=== PATIENT | female | born 1990 | race Caucasian/White ===

== ENCOUNTER 2017-01-06 22:10 | Emergency (ER) | payer MEDICAID ==
[2017-01-06 22:22] VITALS: TEMP 98.8
--- NOTE | 2017-01-06 22:28 | EDPHY ---
H & P Stated Complaint: c/o n/v/abd cramping starting overnight Time Seen by Provider: 01/06/17 22:18 HPI/ROS: HPI The patient presents with nausea, vomiting, crampy abdominal pain which have been present since 2:30 a.m. this morning. These started after having about 15 alcoholic drinks from 7:00 p.m. until 2:00 a.m. the day before. The vomiting has been constant, somewhat greenish in color now, without any blood. She has been unable to take anything by mouth because of the symptoms. The pain is moderate in severity, has been constant, is worse with changes in position. She has no prior history of similar. She denies any urinary symptoms. She has not had any vaginal bleeding or discharge.. REVIEW OF SYSTEMS Constitutional: No fever, no chills. Eyes: No discharge. ENT: No sore throat. Cardiovascular: No chest pain, no palpitations. Respiratory: No cough, no shortness of breath. Gastrointestinal: See HPI Genitourinary: No hematuria. Musculoskeletal: No back pain. Skin: No rashes. Neurological: No headache. PMHx: Healthy Soc Hx: Binge drinker PHYSICAL General Appearance: Alert, no distress Eyes: Pupils equal and round no pallor or injection ENT, Mouth: Mucous membranes moist Respiratory: There are no retractions, lungs are clear to auscultation Cardiovascular: Regular rate and rhythm Gastrointestinal: Abdomen is soft and non-tender, no masses, bowel sounds normal Neurological: A&O, moves all extremities Skin: Warm and dry, no rashes Musculoskeletal: Neck is supple non tender Extremities: symmetrical, full range of motion Psychiatric: Patient is oriented X 3, there is no agitation Source: Patient - Medical/Surgical History Hx Asthma: No Hx Chronic Respiratory Disease: No Hx Diabetes: No Hx Cardiac Disease: No Hx Renal Disease: No Hx Cirrhosis: No Hx Alcoholism: No Hx HIV/AIDS: No Hx Splenectomy or Spleen Trauma: No Other PMH: Hx Meth use (clean since 12/26), ETOH, cocaine - no longer using, Marijuana use now, depression. - Social History Smoking Status: Never smoked Constitutional: Initial Vital Signs Temperature (C) 37.1 C 01/06/17 22:13 Heart Rate 108 H 01/06/17 22:13 Respiratory Rate 18 01/06/17 22:13 Blood Pressure 126/96 H 01/06/17 22:13 O2 Sat (%) 97 01/06/17 22:13 O2 Delivery Mode Room Air Allergies/Adverse Reactions: No Known Allergies Allergy (Verified 01/06/17 22:17) Home Medications: Medication Instructions Recorded Nitrofurantoin Monohyd/M-Cryst 100 mg PO BID #10 capsule 01/07/17 [Macrobid 100 mg Capsule] Medical Decision Making ED Course/Re-evaluation: In the emergency room, the patient received IV fluids for volume depletion as well as Zofran for nausea. Basic labs were checked and were unremarkable. Urinalysis did show signs of infection. She did not have any irritative voiding symptoms and does not have any suprapubic tenderness or flank tenderness on exam, however in the setting of vomiting with this diffuse abdominal pain, I will plan to treat her for an uncomplicated urinary tract infection with Macrobid. She was reassessed and felt well after receiving treatments. She would like to be discharged home. I will give her information for [facility] for primary care she does not see her doctor regularly. I have encouraged her to decrease her alcohol use. Differential Diagnosis: This is a 27-year-old female with history of alcohol abuse who presents with nausea, vomiting, crampy abdominal pain after alcohol binge. On exam, she is tachycardic and mildly dehydrated. Her abdominal exam is benign. Differential diagnosis includes pancreatitis, alcoholic ketoacidosis, alcoholic gastritis, gastroenteritis, toxin mediated enterocolitis. - Data Points Laboratory Results: Laboratory Results 01/06/17 22:30 01/06/17 22:30 01/06/17 01/06/17 01/06/17 23:40 22:30 22:30 WBC RBC Hgb Hct MCV MCH MCHC RDW Plt Count MPV Neut % (Auto) Lymph % (Auto) [place] % (Auto) Eos % (Auto) Baso % (Auto) Nucleat RBC Rel Count Absolute Neuts (auto) Absolute Lymphs (auto) Absolute Monos (auto) Absolute Eos (auto) Absolute Basos (auto) Absolute Nucleated RBC Immature Gran % Immature Gran # Sodium 139 mEq/L mEq/L (134-144) Potassium 3.7 mEq/L mEq/L (3.5-5.2) Chloride 102 mEq/L mEq/L (97-110) Carbon Dioxide 23 mEq/l mEq/l (22-31) Anion Gap 14 mEq/L mEq/L (8-16) BUN 15 mg/dL mg/dL (7-23) Creatinine 0.8 mg/dL mg/dL (0.6-1.0) Estimated GFR > 60 Glucose 105 mg/dL H mg/dL (70-100) Calcium 10.0 mg/dL mg/dL (8.5-10.4) Total Bilirubin 1.4 mg/dL mg/dL (0.1-1.4) Conjugated Bilirubin 0.4 mg/dL mg/dL (0.0-0.5) Unconjugated Bilirubin 1.0 mg/dL mg/dL (0.0-1.1) AST 28 IU/L IU/L (14-46) ALT 32 IU/L IU/L (9-52) Alkaline Phosphatase 137 IU/L H IU/L (38-126) Total Protein 8.2 g/dL g/dL (6.3-8.2) Albumin 4.6 g/dL g/dL (3.5-5.0) Lipase 55.0 IU/L IU/L (23-300) Beta HCG, Qual NEGATIVE Urine Color YELLOW Urine Appearance MODERATELY TURBID Urine pH 7.0 (5.0-7.5) Ur Specific [place] 1.016 (1.002-1.030) Urine Protein 1+ H (NEGATIVE) Urine Ketones 2+ H (NEGATIVE) Urine Blood 1+ H (NEGATIVE) Urine Nitrate NEGATIVE (NEGATIVE) Urine Bilirubin NEGATIVE (NEGATIVE) Urine Urobilinogen NEGATIVE EU EU (0.2-1.0) Ur Leukocyte Esterase 3+ H (NEGATIVE) Urine RBC 15-25 /hpf H /hpf (0-3) Urine WBC 50-182 /hpf H /hpf (0-3) Ur Epithelial Cells TRACE /lpf /lpf (NONE-1+) Urine Bacteria TRACE /hpf H /hpf (NONE SEEN) Urine Mucus TRACE /lpf /lpf (NONE-1+) Ur Culture Indicated? INDICATED H (NI) Urine Glucose NEGATIVE (NEGATIVE) 01/06/17 22:30 WBC 13.87 10^3/uL H 10^3/uL (3.80-9.50) RBC 5.29 10^6/uL 10^6/uL (4.18-5.33) Hgb 14.7 g/dL g/dL (12.6-16.3) Hct 43.0 % % (38.0-47.0) MCV 81.3 fL L fL (81.5-99.8) MCH 27.8 pg L pg (27.9-34.1) MCHC 34.2 g/dL g/dL (32.4-36.7) RDW 13.9 % % (11.5-15.2) Plt Count 308 10^3/uL 10^3/uL (150-400) MPV 9.9 fL fL (8.7-11.7) Neut % (Auto) 76.7 % H % (39.3-74.2) Lymph % (Auto) 17.1 % % (15.0-45.0) [place] % (Auto) 5.2 % % (4.5-13.0) Eos % (Auto) 0.3 % L % (0.6-7.6) Baso % (Auto) 0.4 % % (0.3-1.7) Nucleat RBC Rel Count 0.0 % % (0.0-0.2) Absolute Neuts (auto) 10.65 10^3/uL H 10^3/uL (1.70-6.50) Absolute Lymphs (auto) 2.37 10^3/uL 10^3/uL (1.00-3.00) Absolute Monos (auto) 0.72 10^3/uL 10^3/uL (0.30-0.80) Absolute Eos (auto) 0.04 10^3/uL 10^3/uL (0.03-0.40) Absolute Basos (auto) 0.05 10^3/uL 10^3/uL (0.02-0.10) Absolute Nucleated RBC 0.00 10^3/uL 10^3/uL (0-0.01) Immature Gran % 0.3 % % (0.0-1.1) Immature Gran # 0.04 10^3/uL 10^3/uL (0.00-0.10) Sodium Potassium Chloride Carbon Dioxide Anion Gap BUN Creatinine Estimated GFR Glucose Calcium Total Bilirubin Conjugated Bilirubin Unconjugated Bilirubin AST ALT Alkaline Phosphatase Total Protein Albumin Lipase Beta HCG, Qual Urine Color Urine Appearance Urine pH Ur Specific [place] Urine Protein Urine Ketones Urine Blood Urine Nitrate Urine Bilirubin Urine Urobilinogen Ur Leukocyte Esterase Urine RBC Urine WBC Ur Epithelial Cells Urine Bacteria Urine Mucus Ur Culture Indicated? Urine Glucose Medications Given: Discontinued Medications Sodium Chloride (Ns) 1,000 mls @ 0 mls/hr IV ONCE ONE PRN Reason: Wide Open Stop: 01/06/17 22:26 Last Admin: 01/06/17 22:31 Dose: 1,000 mls Sodium Chloride (Ns) 1,000 mls @ 0 mls/hr IV ONCE ONE PRN Reason: Wide Open Stop: 01/06/17 22:26 Last Admin: 01/06/17 22:38 Dose: 1,000 mls Famotidine/Sodium Chloride (Pepcid 20 Mg (Premix)) 50 mls @ 200 mls/hr IV EDNOW ONE Stop: 01/06/17 22:39 Last Admin: 01/06/17 22:38 Dose: 50 mls Ondansetron HCl (Zofran) 4 mg IVP EDNOW ONE Stop: 01/06/17 22:26 Last Admin: 01/06/17 22:39 Dose: 4 mg Departure - Departure Disposition: Home, Routine, Self-Care Clinical Impression: Urinary tract infection, Abdominal pain, Alcohol abuse Condition: Good Instructions: Urinary Tract Infection in Women (ED), Abuse of Alcohol (ED) Referrals: [facility] [Outside] - As per Instructions Prescriptions: Nitrofurantoin Monohyd/M-Cryst [Macrobid 100 mg Capsule] 100 mg PO BID #10 capsule
[2017-01-06] MEDS: NS 1,000 ML IV ONE ×2 (22:31→22:38)
[2017-01-06 22:36] LABS: % IMMATURE GRANULYOCYTES 0.3 % (0.0-1.1); ABSOLUTE IMMATURE GRANULOCYTES 0.04 10^3/uL (0.00-0.10); ADD DIFF? NO; ADD MORPH? NO; ADD SCAN? NO; ATYPICAL LYMPHOCYTE FLAG 0 (0-99); FRAGMENT RBC FLAG 0 (0-99); HEMOGLOBIN 14.7 g/dL (12.6-16.3); LEFT SHIFT FLG 0 (0-99); LIPEMIA HEMOLYSIS FLAG 90 (0-99); MEAN CELL HEMOGLOBIN 27.8 pg (27.9-34.1); MEAN CELL HEMOGLOBIN CONCENTR. 34.2 g/dL (32.4-36.7); MEAN CELL VOLUME 81.3 fL (81.5-99.8); MEAN PLATELET VOLUME 9.9 fL (8.7-11.7); PLATELET CLUMPS FLAG 10 (0-99); PLATELET COUNT 308 10^3/uL (150-400); RED BLOOD CELL COUNT 5.29 10^6/uL (4.18-5.33); RED CELL DISTRIBUTION WIDTH 13.9 % (11.5-15.2)
[2017-01-06] MEDS: FAMOTIDINE 20 MG/NACL 50 ML IV ONE (22:38)
[2017-01-06] MEDS: ONDANSETRON 4 MG/2 ML VIAL IVP ONE (22:39)
[2017-01-06 22:53] LABS: ALANINE AMINOTRANSFERASE 32 IU/L (9-52); ALBUMIN 4.6 g/dL (3.5-5.0); ALKALINE PHOSPHATASE 137 IU/L (38-126); ANION GAP 14 mEq/L (8-16); ASPARTATE AMINOTRANSFERASE 28 IU/L (14-46); BILIRUBIN,TOTAL 1.4 mg/dL (0.1-1.4); BILIRUBIN-CONJUGATED 0.4 mg/dL (0.0-0.5); CARBON DIOXIDE 23 mEq/l (22-31); CHLORIDE 102 mEq/L (97-110); CREATININE 0.8 mg/dL (0.6-1.0); GLOMERULAR FILTRATION RATE > 60; GLUCOSE 105 mg/dL (70-100); POTASSIUM 3.7 mEq/L (3.5-5.2); SODIUM 139 mEq/L (134-144); TOTAL PROTEIN 8.2 g/dL (6.3-8.2)
[2017-01-06 23:43] VITALS: BP 122/87; PULSE 82; RESP 16; O2SAT 96
[2017-01-06 23:52] LABS: COLOR YELLOW; LEUKOCYTE ESTERASE,URINE 3+ (NEGATIVE); NITRITE,URINE NEGATIVE (NEGATIVE)
[2017-01-07 00:02] LABS: BACTERIA TRACE /hpf (NONE SEEN); MUCUS TRACE /lpf (NONE-1+); RBC,URINE 15-25 /hpf (0-3); WBC,URINE 50-182 /hpf (0-3)
== END 2017-01-07 00:20 | disposition home or self-care (01) ==
DX: N39.0 Urinary tract infection, site not specified (principal); F10.10 Alcohol abuse, uncomplicated
CPT/HCPCS: 96365; J2405